=== PATIENT | female | born 1990 | race African-American/Black ===

== ENCOUNTER 2024-07-09 16:47 | Emergency (ER) | payer OTHER ==
[2024-07-09] MEDS ORDERED: Acetaminophen 500 MG TAB ONE (16:59)
[2024-07-09] MEDS ORDERED: Cyclobenzaprine 10 MG TAB ONE (19:27)
== END 2024-07-09 19:45 | disposition home or self-care (01) ==
LOC: ERS 16:47
DX: R25.2 Cramp and spasm (principal); V43.52XA Car driver injured in collision with other type car in traffic accident, initial encounter; Y93.89 Activity, other specified
CPT/HCPCS: 71045; 99284